=== PATIENT | male | born 1945 | race Hispanic/Latino ===

== ENCOUNTER 2016-12-02 17:22 | Emergency (ER) | payer MEDICARE ==
[2016-12-02 17:22] VITALS: BMI 30.4
--- NOTE | 2016-12-02 18:36 | ED PDOC ---
HPI: Head Injury Time Seen by Provider: 12/02/16 17:45 Chief Complaint (Nursing): Headache Chief Complaint (Provider): Head Injury History Per: Patient History/Exam Limitations: no limitations Injury Occurred (Timing): Days Ago: (x2) Onset/Duration Of Symptoms: Intermittent Episodes Patient States: Fell Striking Head Description Of Injury (Context): Fell in the middle of the night, hit top of head and nose on furniture Loss Of Consciousness: No Additional Complaint(s): 70 year old male presents to ED with complaints of head injury sustained x2 days ago and has a past medical history of HTN and hypercholesterolemia. States that he hit the top of his head and nose on furniture after tripping. Notes intermittent dizziness when walking since injury. (+) mild left sided headache, (-) LOC, syncopy, chest pain, or vomiting. Patient reports history of subdural hematoma x2 and a craniotomy. Notes that he was admitted her earlier this year for subdural hematoma ([facility] - surg). PCP: Dr. Jeffrey Past Medical History Reviewed: Historical Data, Nursing Documentation, Vital Signs Vital Signs: Last Vital Signs Temp 97.2 F L 12/02/16 17:28 Pulse 66 12/02/16 17:28 Resp 16 12/02/16 17:28 BP 133/71 12/02/16 17:28 Pulse Ox 100 12/02/16 17:28 - Medical History PMH: Anxiety (50 years ago), Arthritis, Depression (50 years ago), HTN, Hypercholesterolemia, Kidney Stones, Chronic Kidney Disease Denies: No Chronic Diseases, Asthma, Atrial Fibrillation, Bronchitis, Cardia Arrhythmia, CHF, COPD, Emphysema, HIV, Mitral Valve Prolapse, Parkinson's Disease, Peripheral Edema, Seizures, TIA - Surgical History Surgical History: Denies: No Surg Hx, Pacemaker Other surgeries: Craniotomy - Family History Family History: States: Unknown Family Hx - Social History Drugs: Denies - Home Medications Home Medications: Ambulatory Orders Medication Instructions Recorded Acetaminophen [Tylenol 325mg tab] 650 mg PO Q6 PRN #0 tab 06/11/16 Betamethasone Dip 0.05% [Diprolene] 1 applic TOP BID #0 tube 06/11/16 Enalapril Maleate [Vasotec] 10 mg PO DAILY #0 tab 06/11/16 Gabapentin [Neurontin] 300 mg PO BID #0 cap 06/11/16 Insulin Detemir [Levemir] 30 units SC HS #0 vial 06/11/16 MetFORMIN [glucoPHAGE] 1,000 mg PO BIDWM #0 tab 06/11/16 Metoprolol Tartrate [Lopressor] 50 mg PO Q12 #0 tab 06/11/16 Pantoprazole [Protonix EC Tab] 40 mg PO DAILY #0 ect 06/11/16 Pioglitazone [Actos] 30 mg PO DAILY #0 tab 06/11/16 SITagliptin [Januvia] 100 mg PO DAILY #0 tab 06/11/16 Sucralfate [Carafate Oral Susp] 1 gm PO TID #0 udc 06/11/16 Thiamine [Vitamin B1 Tab] 100 mg PO TID #0 tab 06/11/16 Venlafaxine [Effexor XR] 150 mg PO DAILY #0 cer 06/11/16 Zolpidem [Ambien] 5 mg PO HS PRN #0 tab 06/11/16 amLODIPine [Norvasc] 10 mg PO DAILY #0 tab 06/11/16 levETIRAcetam [Keppra] 1,000 mg PO BID #0 tab 06/11/16 - Allergies Allergies/Adverse Reactions: Allergies Allergy/AdvReac Type Severity Reaction Status Date / Time iodine Allergy RASH Verified 12/02/16 17:28 Review of Systems ROS Statement: Except As Marked, All Systems Reviewed And Found Negative Cardiovascular: Negative for: Chest Pain Gastrointestinal: Negative for: Vomiting Neurological: Positive for: Headache, Dizziness. Negative for: Other (LOC, syncopy) Physical Exam - Reviewed Nursing Documentation Reviewed: Yes Vital Signs Reviewed: Yes - Physical Exam Appears: Positive for: No Acute Distress. Negative for: Uncomfortable Head Exam: Positive for: ATRAUMATIC Skin: Positive for: Normal Color, Warm, Dry Eye Exam: Positive for: Normal appearance, EOMI, PERRL ENT: Positive for: Other (Small abrasion on left bridge of nose) Neck: Positive for: Normal, Supple Cardiovascular/Chest: Positive for: Regular Rate, Rhythm. Negative for: Murmur Respiratory: Positive for: Normal Breath Sounds. Negative for: Respiratory Distress Gastrointestinal/Abdominal: Positive for: Normal Exam Extremity: Positive for: Normal ROM. 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 Negative for: Motor/ Sensory Deficits, Aphasia, Facial Droop - Laboratory Results Result Diagrams: 12/02/16 18:33 12/02/16 18:33 - ECG ECG: Positive for: Interpreted By Me, Viewed By Me ECG Rhythm: Positive for: Normal QRS, Normal ST Segment, Sinus Rhythm. Negative for: ST/T Changes Rate: 66 O2 Sat by Pulse Oximetry: 100 (RA) Pulse Ox Interpretation: Normal Medical Decision Making Medical Decision Makin Initial impression: head injury DDx: subdural hematoma, other intracranial bleeding, concussion Initial plan: * CT HEAD * EKG * Labs * PTT/PT Scribe Attestation: Documented by Bárbara Telles acting as a scribe for Godwin Busch MD. Scribe Attestation: All medical record entries made by the Scribe were at my direction and personally dictated by me. I have reviewed the chart and agree that the record accurately reflects my personal performance of the history, physical exam, medical decision making, and the department course for this patient. I have also personally directed, reviewed, and agree with the discharge instructions and disposition. Disposition - Clinical Impression Clinical Impression: Headache, Head injury - Patient ED Disposition Is Patient to be Admitted: No Doctor Will See Patient In The: Office Counseled Patient/Family Regarding: Studies Performed, Diagnosis, Need For Followup - Disposition Referrals: Estuardo Jeffrey MD [Staff Provider] - Disposition: Routine/Home Disposition Time: 19:18 Condition: GOOD Additional Instructions: Follow up with your PCP in 2-3 days. Instructions: Head Injury (ED)
[2016-12-02 18:38] LABS: BASO % 0.4 % (0.0-2.0); EOS # 0.1 K/uL (0.0-0.7); EOS % 1.6 % (0.0-4.0); HEMATOCRIT 39.6 % (35.0-51.0); LYMPH # 2.2 K/uL (1.0-4.3); LYMPH % 38.3 % (20.0-40.0); MEAN CELL VOLUME 91.5 fl (80.0-94.0); MEAN CORPUSCULAR HEMOGLOBIN 30.6 pg (27.0-31.0); MEAN CORPUSCULAR HGB CONC 33.4 g/dL (33.0-37.0); MEAN PLATELET VOLUME 7.5 fl (7.2-11.7); MONO # 0.5 K/uL (0.0-0.8); MONO % 8.6 % (0.0-10.0); NEUT # 2.9 K/uL (1.8-7.0); NEUT % 51.1 % (50.0-75.0); NRBC % 0.1 % (0.0-0.0); RED CELL DISTRIBUTION WIDTH 13.4 % (11.5-14.5); WHITE BLOOD COUNT 5.7 K/uL (4.8-10.8)
[2016-12-02 18:49] LABS: BLOOD UREA NITROGEN 33 mg/dl (9-20); CALCIUM 9.8 mg/dL (8.4-10.2); CARBON DIOXIDE 26 mmol/L (22-30); CHLORIDE 102 mmol/L (98-107); GFR AFRICAN-AMERICAN > 60; GLUCOSE,RANDOM 97 mg/dL (75-110); POTASSIUM 4.6 MMOL/L (3.6-5.0); SODIUM 140 mmol/l (132-148)
--- NOTE | 2016-12-02 18:59 | CT ---
PROCEDURE: CT HEAD WITHOUT CONTRAST. HISTORY: head injury headache hx of SDH/cranio COMPARISON: 07/29/2016. Summary of findings on the comparison examination: Interval resolving previously identified chronic left subdural hematoma. TECHNIQUE: Axial computed tomography images were obtained through the head/brain without intravenous contrast. Radiation dose: Total exam DLP = 920.17 mGy-cm. This CT exam was performed using one or more of the following dose reduction techniques: Automated exposure control, adjustment of the mA and/or kV according to patient size, and/or use of iterative reconstruction technique. FINDINGS: HEMORRHAGE: No intracranial hemorrhage. Very thin rim of extra-axial fluid at the surgical bed improved compared to the previous study. Maximum thickness 4 mm. Underlying cortical sulci are unremarkable without evidence of edema or mass effect. BRAIN: No mass effect or edema. Cortical atrophy, periventricular small vessel disease VENTRICLES: Unremarkable. No hydrocephalus. CALVARIUM: Satisfactory appearance postoperative changes related to left craniotomy. PARANASAL SINUSES: Unremarkable as visualized. No significant inflammatory changes. MASTOID AIR CELLS: Unremarkable as visualized. No inflammatory changes. OTHER FINDINGS: None. IMPRESSION: No acute findings related to/accounting for the clinical presentation. Improving postoperative findings with trace residual extra-axial fluid at the surgical site.
[2016-12-02 19:04] LABS: PARTIAL THROMBOPLASTIN TIME 29.2 SECONDS (23.3-32.5)
[2016-12-02 19:39] VITALS: BP 136/76; PULSE 68; RESP 17; TEMP 97.9; O2SAT 98
--- NOTE | 2016-12-03 12:37 | CARD ---
APPROVED REPORT EKG Measurement Heart [id number] <Conclusion> Normal sinus rhythm Normal ECG
== END 2016-12-02 19:35 | disposition home or self-care (01) ==
LOC: H.ER 17:22
DX: S09.90XA Unspecified injury of head, initial encounter (principal); W19.XXXA Unspecified fall, initial encounter; Y92.008 Other place in unspecified non-institutional (private) residence as the place of occurrence of the external cause; F41.9 Anxiety disorder, unspecified; I12.9 Hypertensive chronic kidney disease with stage 1 through stage 4 chronic kidney disease, or unspecified chronic kidney disease; E78.00 Pure hypercholesterolemia, unspecified; Z79.4 Long term (current) use of insulin; E11.9 Type 2 diabetes mellitus without complications

== ENCOUNTER 2017-04-11 15:22 | Inpatient (IN) | payer MEDICARE ==
[2017-04-11 15:22] VITALS: BMI 30.4
--- NOTE | 2017-04-11 17:13 | ED PDOC ---
HPI: Psych/Substance Abuse Time Seen by Provider: 04/11/17 17:11 Chief Complaint (Nursing): Psychiatric Evaluation Chief Complaint (Provider): PSYCH EVAL History Per: Patient (71 Y/O MALE H/O SUBDURAL HEMORRHAGE/HTN HERE WITH ANXIETY. PATIENT CONCERNED ABOUT RECENT FALLS AND WORRIED ABOUT H/O SUBDURAL HEMORRHAGE. PATIENT HAS SEEN PMD [facility] AND STATES HE IS WORRIED HE MAY HURT SELF. SENT TO ED FOR EVALUATION.) Past Medical History Reviewed: Historical Data, Nursing Documentation, Vital Signs Vital Signs: Last Vital Signs Temp 98.2 F 04/11/17 15:53 Pulse 66 04/11/17 15:53 Resp 16 04/11/17 15:53 BP 137/54 L 04/11/17 15:53 Pulse Ox 100 04/11/17 15:53 - Medical History PMH: Anxiety (50 years ago), Arthritis, Depression (50 years ago), HTN, Hypercholesterolemia, Kidney Stones, Chronic Kidney Disease Denies: Asthma, Atrial Fibrillation, Bronchitis, Cardia Arrhythmia, CHF, COPD , Emphysema, HIV, Mitral Valve Prolapse, Parkinson's Disease, Peripheral Edema, Seizures, TIA - Surgical History Surgical History: Denies: Pacemaker - Family History Family History: States: Unknown Family Hx - Home Medications Home Medications: Ambulatory Orders Medication Instructions Recorded Pantoprazole [Protonix EC Tab] 40 mg PO DAILY #0 ect 06/11/16 Pioglitazone [Actos] 30 mg PO DAILY #0 tab 06/11/16 SITagliptin [Januvia] 100 mg PO DAILY #0 tab 06/11/16 Sucralfate [Carafate Oral Susp] 1 gm PO TID #0 udc 06/11/16 Aspirin [Aspirin Chewable] 81 mg PO DAILY 04/11/17 Atorvastatin [Lipitor] 20 mg PO HS 04/11/17 Gabapentin [Neurontin] 300 mg PO HS 04/11/17 Glimepiride [Amaryl] 1 mg PO BID 04/11/17 Losartan [Cozaar] 25 mg PO DAILY 04/11/17 MetFORMIN [glucoPHAGE] 1,000 mg PO BID 04/11/17 Saxagliptin HCl [Onglyza] 10 mg PO DAILY 04/11/17 Metoprolol Tartrate [Lopressor] 12.5 mg PO Q12 #60 tab 04/14/17 Venlafaxine HCl [Venlafaxine HCl 225 mg PO DAILY #30 tab.er.24 04/14/17 ER] Zolpidem [Ambien] 5 mg PO HS PRN #30 tab 04/14/17 - Allergies Allergies/Adverse Reactions: Allergies Allergy/AdvReac Type Severity Reaction Status Date / Time iodine Allergy RASH Verified 04/11/17 15:53 Review of Systems ROS Statement: Except As Marked, All Systems Reviewed And Found Negative Physical Exam - Reviewed Nursing Documentation Reviewed: Yes Vital Signs Reviewed: Yes - Physical Exam Appears: Positive for: Well, Non-toxic, No Acute Distress Head Exam: Positive for: ATRAUMATIC, NORMAL INSPECTION, NORMOCEPHALIC Skin: Positive for: Normal Color, Warm, DRY Eye Exam: Positive for: EOMI, Normal appearance, PERRL ENT: Positive for: Normal ENT Inspection Neck: Positive for: Normal, Painless ROM Cardiovascular/Chest: Positive for: Regular Rate, Rhythm Respiratory: Positive for: CNT, Normal Breath Sounds Gastrointestinal/Abdominal: Positive for: Normal Exam, Bowel Sounds, Soft Back: Positive for: Normal Inspection Extremity: Positive for: Normal ROM Neurologic/Psych: Positive for: Alert, Oriented - Laboratory Results Result Diagrams: 04/11/17 17:50 04/11/17 17:50 - ECG ECG Rhythm: Positive for: Sinus Bradycardia (59 bpm no ectopy no acute changes) O2 Sat by Pulse Oximetry: 100 - Progress ED Course And Treament: HEAD CT: NO ACUTE DISEASE Disposition - Clinical Impression Clinical Impression: Depression - Patient ED Disposition Is Patient to be Admitted: Transfer of Care - Disposition Disposition: Transfer of Care Disposition Time: 20:00 Condition: STABLE Patient Signed Over To: Deepa Franz Handoff Comments: CRISIS EVAL
[2017-04-11 18:15] LABS: BASO % 0.2 % (0.0-2.0); EOS # 0.1 K/uL (0.0-0.7); EOS % 0.9 % (0.0-4.0); HEMATOCRIT 39.9 % (35.0-51.0); LYMPH # 1.8 K/uL (1.0-4.3); LYMPH % 28.5 % (20.0-40.0); MEAN CORPUSCULAR HEMOGLOBIN 31.1 pg (27.0-31.0); MEAN CORPUSCULAR HGB CONC 34.2 g/dL (33.0-37.0); MEAN PLATELET VOLUME 7.5 fl (7.2-11.7); MONO # 0.4 K/uL (0.0-0.8); MONO % 6.5 % (0.0-10.0); NEUT # 3.9 K/uL (1.8-7.0); NEUT % 63.9 % (50.0-75.0); NRBC % 0.1 % (0.0-0.0); RED CELL DISTRIBUTION WIDTH 13.2 % (11.5-14.5); WHITE BLOOD COUNT 6.2 K/uL (4.8-10.8)
[2017-04-11 18:22] LABS: ALB/GLOB RATIO 1.5 (1.0-2.1); ALCOHOL SERUM < 10 mg/dl (0-10); ALKALINE PHOSPHATASE 77 U/L (38-126); ALT/SGPT 36 U/L (21-72); AST/SGOT 26 U/L (17-59); BILIRUBIN,TOTAL 0.5 mg/dl (0.2-1.3); BLOOD UREA NITROGEN 21 mg/dl (9-20); CALCIUM 10.1 mg/dL (8.4-10.2); CARBON DIOXIDE 23 mmol/L (22-30); CHLORIDE 102 mmol/L (98-107); GFR AFRICAN-AMERICAN > 60; GLUCOSE,RANDOM 96 mg/dL (75-110); POTASSIUM 4.5 MMOL/L (3.6-5.0); SODIUM 138 mmol/l (132-148); TOTAL PROTEIN 7.2 G/DL (6.3-8.2)
[2017-04-11 18:52] LABS: THYROID STIMULATING HORMONE 1.62 mIU/ML (0.46-4.68)
--- NOTE | 2017-04-11 20:00 | CT ---
EXAM: CT Head Without Intravenous Contrast EXAM DATE/TIME: 04/11/2017 5:11 PM CLINICAL HISTORY: 71 years old, male; Condition or disease; Other: H/o subdural; Prior surgery; Surgery date: 6+ months; Additional info: H/o subdural/ notes falls TECHNIQUE: Axial computed tomography images of the head/brain without intravenous contrast. All CT scans at this facility use one or more dose reduction techniques, viz.: automated exposure control; ma/kV adjustment per patient size (including targeted exams where dose is matched to indication; i.e. head); or iterative reconstruction technique. Coronal and sagittal reformatted images were created and reviewed. COMPARISON: CT - HEAD W/O CONTRAST 12/02/2016 6:39:43 PM FINDINGS: Brain: There is prominence of sulci gyri and ventricles. There is no midline shift. There is patchy asymmetric decreased attenuation in periventricular white matter. There are no focal masses. There are no focal hemorrhages. There is a chronic left subdural collection. Apple-white differentiation is visualized. Ventricles: See above Bones: There is an old left frontoparietal craniotomy defect. Soft tissues: unremarkable Sinuses: There is no acute sinusitis. Ears and mastoids: Middle ears and mastoids are unremarkable. Orbits: Orbital contents are unremarkable. IMPRESSION: Atrophy and small vessel disease, no acute bleed; remote left frontoparietal craniotomy with stable subdural collection, similar finding seen on the prior study
[2017-04-11 20:45] LABS: RBC URINE 1 /hpf (0-3); URINE BACTERIA RARE (<OCC); URINE BILIRUBIN NEGATIVE (NEGATIVE); URINE BLOOD NEGATIVE (NEGATIVE); URINE COLOR YELLOW (YELLOW); URINE GLUCOSE (UA) >=500 mg/dL (Normal); URINE KETONE NEGATIVE (NEGATIVE); URINE LEUKOCYTE ESTERASE NEG Leu/uL (Negative); URINE PROTEIN NEGATIVE (NEGATIVE); URINE UROBILINOGEN 0.2-1.0 mg/dL (0.2-1.0); WBC URINE < 1 /hpf (0-5)
--- NOTE | 2017-04-11 21:11 | ED PDOC ---
- Laboratory Results Result Diagrams: 04/11/17 17:50 04/11/17 17:50 - ECG O2 Sat by Pulse Oximetry: 100 - Radiology X-Ray: Viewed By Me X-Ray Interpretation: No Acute Disease - Progress ED Course And Treament: case endorsed to report writer from Adrian LEÓN pending crisis eval Patient evaluated by central supply worker; to be admitted as per Dr. Ann Medical Decision Making Medical Decision Making: Patient medically stable for psych admission. Disposition - Clinical Impression Clinical Impression: Depression - POA Present On Arrival: None - Disposition Disposition: Admitted as In-Patient Disposition Time: 21:11 Condition: STABLE
[2017-04-11] MEDS ORDERED: Alum-Mag Hydrox-Simethicone Susp (30 mL) PO PRN (22:39)
[2017-04-11] MEDS ORDERED: Magnesium Hydroxide Susp 30 ml UD PO PRN (22:39)
[2017-04-11] MEDS ORDERED: Bismuth Subsalicylate 262 mg/15 ml Sus (240 ml) PO PRN (22:39)
--- NOTE | 2017-04-11 23:46 | PCM.BM ---
Treatment Plan Problems - Problems identified on initial assessmt Social Isolation Date Initiated: 04/11/17 Time Initiated: 23:45 Assessment reference: NA Status: Active Activity Intolerance Date Initiated: 04/11/17 Time Initiated: 23:45 Assessment reference: NA Status: Active Treatment assets and liabiliti Patient Assests: adapts well, cooperative, ADL independent, good support system , cognitively intact, good interpersonal skills Patient Liabilities: live alone, financial problems - Milieu Protocol Maintain good personal hygiene: daily Encourage regular showers, daily Remind patient to perform daily oral care, daily Assist patient to perform ADL's Maintain personal safety: every shift Educate patient to report safety concerns to staff, every shift Monitor environment for contraband/sharps Medication safety: Monitor for expected outcome, potential side effects: every shift, Assess barriers to learning: every shift, Assess readiness for medication education: every shift
[2017-04-12 07:10] LABS: T4 9.07 ug/dl (5.5-11.0)
[2017-04-12 07:23] LABS: THYROID STIMULATING HORMONE 3.49 mIU/ML (0.46-4.68)
--- NOTE | 2017-04-12 07:30 | CARD ---
APPROVED REPORT EKG Measurement Heart [id number] [id number] <Conclusion> Sinus bradycardia Inferior infarct, age undetermined Abnormal ECG
--- NOTE | 2017-04-12 08:05 | CP.PCM.CON ---
History of Present Illness - History of Present Illness History of Present Illness: HPI: 71 y/o male with a PMHx remarkable for anxiety, HTN, NIDDM2, and subdural hematoma (requiring surgical interventionx2) presented to the [facility] ED for evaluation of worsening anxiety and insomina associated with feelings of self harm. Reports he has been complaint with his medications but feels like the Effexor has not been controlling his symptoms well enough. No other complaints. Currently denies any fever/chills, headaches, changes in vision, auditory/ visual disturbances/hallucinations, homicidal/suicidal ideation, CP/SOB/ Palpitations, N/V/D/C, Urinary symptoms, numbness/tingling. ROS: 12 points reviewed, negative otherwise as noted per HPI PMD: Dr. Jeffrey PMHx: HTN, NIDDM2, Sudural hematoma s/p fall Meds: as per med rec ALL: iodine (rash) Vaccines: up to date as per pt PSurghx: subdural hematoma surgery x2, laminectomy SocialHx: denies tobacco abuse, social ETOH consumption, Denies recreational/ illicit drug use. 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 FamilyHx: noncontributory PE: GEN: well, NAD, AAOx3 PSYCH: cooperative with exam, calm, alert HEENT: atraumatic, scars s/p subdural hematoma surgery, PERRLA, EMOI, conjuctiva clear, sclera nonicteric, throat clear Neck: no cervical adenopathy, carotid bruit, thyroid nontender. CVS: RRR, S1S2+, No MRG, Normal PMI LUNGS: CTA, B/L, No WRR ABD: Soft, NT/ND, No G/R, bowl sounds + Pulses: 2+ throughout Neuro: CN II-XII grossly intact Assessment: 71 y/o male with PMHx of anxiety, HTN, NIDDM2 admitted zo-psych for evaluation of anxiety exacerbation. Plan: 1) Anxiety Exacerbation -as per psych team 2) HTN (well controlled) -Decreased Lopressor to 25mg Q12, will monitor vitals -c/w with Losartan, with adjust based on vitals -Atorvastatin 40mg 3) NIDDM2 -f/u HBA1C -monitor BS -Januvia 100mg QD -Metformin 1000mg BID -Pioglitazone 30mg QD 4) Preventive -Lipid panel, TSH, T4 all wnl 5) Prophylaxis: -Aspirin 81mg QD -Pantoprazole 40mg QD -Ambulation Case d/w attending, will follow as needed Past Patient History - Tetanus Immunizations Tetanus Immunization: Unknown - Past Medical History & Family History Past Medical History?: Yes - Past Social History Smoking Status: Never Smoked - CARDIAC Hx Cardiac Disorders: Yes Hx Hypercholesterolemia: Yes Hx Hypertension: Yes - PULMONARY Hx Respiratory Disorders: Yes - NEUROLOGICAL HX Cerebrovascular Accident: No Hx Seizures: No - HEENT Hx HEENT Problems: Yes Other/Comment: Near sighted, contact lenses, reading glasses - RENAL Hx Chronic Kidney Disease: Yes Hx Kidney Stones: Yes - ENDOCRINE/METABOLIC Hx Endocrine Disorders: Yes Hx Diabetes Mellitus Type 1: Yes - HEMATOLOGICAL/ONCOLOGICAL Hx Cancer: No Hx Human Immunodeficiency Virus (HIV): No - INTEGUMENTARY Hx Dermatological Problems: Yes Hx Psoriasis: Yes (Head & back & Buttocks) Other/Comment: Taking diprolene lotion/ointment - MUSCULOSKELETAL/RHEUMATOLOGICAL Hx Falls: No - GASTROINTESTINAL Hx Gastritis: Yes Other/Comment: Gastroparesis - GENITOURINARY/GYNECOLOGICAL Hx Sexually Transmitted Disorders: No - PSYCHIATRIC Hx Anxiety: Yes Hx Depression: Yes Hx Substance Use: No - SURGICAL HISTORY Other/Comment: -Pilonidal Cystectomy 1965. -Lithotripsy. -2 laminectomy ( July 2014) Back surgery by Dr. Castro. -Craniotomy & Evacuation of Clots - 06/09 - ANESTHESIA Hx Anesthesia: Yes Hx Anesthesia Reactions: No Hx Malignant Hyperthermia: No Meds Allergies/Adverse Reactions: Allergies Allergy/AdvReac Type Severity Reaction Status Date / Time iodine Allergy RASH Verified 04/11/17 15:53 - Medications Medications: Current Medications Acetaminophen (Tylenol 325mg Tab) 650 mg PO Q4 PRN PRN Reason: Pain, moderate (4-7) Al Hydrox/Mg Hydrox/Simethicone (Maalox Plus 30 Ml) 30 ml PO Q4 PRN PRN Reason: Dyspepsia Aspirin (Aspirin Chewable) 81 mg PO DAILY [facility] Atorvastatin Calcium (Lipitor) 20 mg PO HS [facility] Bismuth Subsalicylate (Pepto-Bismol) 524 mg PO Q4 PRN PRN Reason: Diarrhea Gabapentin (Neurontin) 300 mg PO HS [facility] Home Med (Glimepiride [Amaryl]) 1 mg PO BID [facility] Home Med (Saxagliptin Hcl [Onglyza]) 10 mg PO DAILY [facility] Lorazepam (Ativan) 0.5 mg PO HS PRN PRN Reason: Insomnia Stop: 04/25/17 22:40 Last Admin: 04/11/17 23:14 Dose: 0.5 mg Losartan Potassium (Cozaar) 25 mg PO DAILY [facility] Magnesium Hydroxide (Milk Of Magnesia) 30 ml PO HS PRN PRN Reason: Constipation Metformin HCl (Glucophage) 1,000 mg PO BID [facility] Metoprolol Tartrate (Lopressor) 50 mg PO Q12 [facility] Pantoprazole Sodium (Protonix Ec Tab) 40 mg PO DAILY [facility] Pioglitazone HCl (Actos) 30 mg PO DAILY [facility] Sitagliptin Phosphate (Januvia) 100 mg PO DAILY [facility] Sucralfate (Carafate Oral Susp) 1 gm PO TID [facility] Venlafaxine HCl (Effexor Xr) 150 mg PO DAILY [facility] Results - Vital Signs Recent Vital Signs: Last Vital Signs Temp 97.3 F L 04/12/17 06:00 Pulse 68 04/12/17 06:00 Resp 19 04/12/17 06:00 BP 125/64 04/12/17 06:00 Pulse Ox 98 04/11/17 22:25 - Labs Result Diagrams: 04/11/17 17:50 04/11/17 17:50 Labs: Laboratory Results - last 24 hr 04/11/17 04/11/17 04/11/17 17:50 17:50 20:36 WBC 6.2 RBC 4.39 L Hgb 13.6 Hct 39.9 MCV 91.0 MCH 31.1 H MCHC 34.2 RDW 13.2 Plt Count 186 MPV 7.5 Neut % (Auto) 63.9 Lymph % (Auto) 28.5 Pender % (Auto) 6.5 Eos % (Auto) 0.9 Baso % (Auto) 0.2 Neut # 3.9 Lymph # 1.8 Pender # 0.4 Eos # 0.1 Baso # 0.0 Sodium 138 Potassium 4.5 Chloride 102 Carbon Dioxide 23 Anion Gap 17 BUN 21 H Creatinine 1.1 Est GFR ( Amer) > 60 Est GFR (Non-Af Amer) > 60 POC Glucose (mg/dL) Random Glucose 96 Calcium 10.1 Ferritin Total Bilirubin 0.5 AST 26 ALT 36 Alkaline Phosphatase 77 Total Protein 7.2 Albumin 4.4 Globulin 2.8 Albumin/Globulin Ratio 1.5 Triglycerides Cholesterol LDL Cholesterol Direct HDL Cholesterol Vitamin B12 Free T4 Thyroxine (T4) TSH 3rd Generation 1.62 Urine Color Urine Clarity Urine pH Ur Specific Chaplin Urine Protein Urine Glucose (UA) Urine Ketones Urine Blood Urine Nitrate Urine Bilirubin Urine Urobilinogen Ur Leukocyte Esterase Urine RBC (Auto) Urine Microscopic WBC Ur Squamous Epith Cells Urine Bacteria Urine Opiates Screen Negative Urine Methadone Screen Negative Ur Barbiturates Screen Negative Ur Phencyclidine Scrn Negative Ur Amphetamines Screen Negative U Benzodiazepines Scrn Positive H U Oth Cocaine Metabols Negative U Cannabinoids Screen Negative Alcohol, Quantitative < 10 04/11/17 04/12/17 04/12/17 20:36 06:31 06:31 WBC RBC Hgb Hct MCV MCH MCHC RDW Plt Count MPV Neut % (Auto) Lymph % (Auto) Pender % (Auto) Eos % (Auto) Baso % (Auto) Neut # Lymph # Pender # Eos # Baso # Sodium Potassium Chloride Carbon Dioxide Anion Gap BUN Creatinine Est GFR ( Amer) Est GFR (Non-Af Amer) POC Glucose (mg/dL) Random Glucose Calcium Ferritin 41.8 Total Bilirubin AST ALT Alkaline Phosphatase Total Protein Albumin Globulin Albumin/Globulin Ratio Triglycerides 128 Cholesterol 117 LDL Cholesterol Direct 56 HDL Cholesterol 35 Vitamin B12 298 Free T4 1.31 Thyroxine (T4) 9.07 TSH 3rd Generation 3.49 Urine Color Yellow Urine Clarity Slighty-cloudy Urine pH 5.0 Ur Specific Chaplin 1.030 Urine Protein Negative Urine Glucose (UA) >=500 Urine Ketones Negative Urine Blood Negative Urine Nitrate Negative Urine Bilirubin Negative Urine Urobilinogen 0.2-1.0 Ur Leukocyte Esterase Neg Urine RBC (Auto) 1 Urine Microscopic WBC < 1 Ur Squamous Epith Cells < 1 Urine Bacteria Rare Urine Opiates Screen Urine Methadone Screen Ur Barbiturates Screen Ur Phencyclidine Scrn Ur Amphetamines Screen U Benzodiazepines Scrn U Oth Cocaine Metabols U Cannabinoids Screen Alcohol, Quantitative 04/12/17 06:56 WBC RBC Hgb Hct MCV MCH MCHC RDW Plt Count MPV Neut % (Auto) Lymph % (Auto) Pender % (Auto) Eos % (Auto) Baso % (Auto) Neut # Lymph # Pender # Eos # Baso # Sodium Potassium Chloride Carbon Dioxide Anion Gap BUN Creatinine Est GFR ( Amer) Est GFR (Non-Af Amer) POC Glucose (mg/dL) 84 Random Glucose Calcium Ferritin Total Bilirubin AST ALT Alkaline Phosphatase Total Protein Albumin Globulin Albumin/Globulin Ratio Triglycerides Cholesterol LDL Cholesterol Direct HDL Cholesterol Vitamin B12 Free T4 Thyroxine (T4) TSH 3rd Generation Urine Color Urine Clarity Urine pH Ur Specific Chaplin Urine Protein Urine Glucose (UA) Urine Ketones Urine Blood Urine Nitrate Urine Bilirubin Urine Urobilinogen Ur Leukocyte Esterase Urine RBC (Auto) Urine Microscopic WBC Ur Squamous Epith Cells Urine Bacteria Urine Opiates Screen Urine Methadone Screen Ur Barbiturates Screen Ur Phencyclidine Scrn Ur Amphetamines Screen U Benzodiazepines Scrn U Oth Cocaine Metabols U Cannabinoids Screen Alcohol, Quantitative
[2017-04-12] MEDS ORDERED: SAXAGLIPTIN HCL PO SCH (09:00)
[2017-04-12] MEDS: Venlafaxine 150 mg ER Cap PO SCH (09:20)
[2017-04-12] MEDS: Sucralfate 1 gm/10 ml Oral Susp UD PO SCH ×3 (09:22→16:39)
[2017-04-12] MEDS: Pantoprazole 40 mg EC Tab PO SCH (09:23)
--- NOTE | 2017-04-12 11:09 | PCM.PSYCH ---
Initial Psychiatric Evaluation - Initial Psychiatric Evaluation Type of Admission: Voluntary Legal Status: Capacity Chief Complaint (in patient's own words): "I was feeling depressed and had thoughts of hurting myself." Patient's Reaction to Hospitalization: HPI: 71 y/o male who brought himself into ED secondary to his PCP-Dr. Jeffrey encouraging him to get a psych eval due to him expressing SI a few days ago. Patient reports that he has thoughts of hurting himself w/o plan or intent. He currently denies any suicidal ideation/plan/attempt. Patient reports that he has chronic depression/anxiety and states that his depression has been worse recently. +sleep/appetite disturbances. +hopelessness at times. Denied AH/VH/paranoia/delusions/fanny/obsessions. We discussed increasing his Effexor, but he was not agreeable at this time. Dismantler discussed that benzo use can increase risk of falls in the elderly. 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 Takes Effexor ER 187.5 mg PO Daily, Ambien 10mg PO HS, and Xanax PRN prescribed by PMD; Pt stated he attempted suicide by taking pills and alcohol when he was 17 y/o. 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 Lives alone. Never , no kids. Drinks socially, denies drug use. Current Medications: Active Medications Generic Name Dose Route Start Last Admin Trade Name Freq PRN Reason Stop Dose Admin Acetaminophen 650 mg 04/11/17 22:39 Tylenol 325mg Tab PO Q4 PRN Pain, moderate (4-7) Al Hydrox/Mg Hydrox/Simethicone 30 ml 04/11/17 22:39 Maalox Plus 30 Ml PO Q4 PRN Dyspepsia Aspirin 81 mg 04/12/17 09:00 04/12/17 09:20 Aspirin Chewable PO 81 mg DAILY PAMELA Administration Atorvastatin Calcium 20 mg 04/12/17 22:00 Lipitor PO HS [facility] Bismuth Subsalicylate 524 mg 04/11/17 22:39 Pepto-Bismol PO Q4 PRN Diarrhea Gabapentin 300 mg 04/12/17 22:00 Neurontin PO HS [facility] Home Med 1 mg 04/12/17 09:00 Glimepiride [Amaryl] PO BID [facility] Home Med 10 mg 04/12/17 09:00 Saxagliptin Hcl [Onglyza] PO DAILY [facility] Lorazepam 0.5 mg 04/12/17 10:06 Ativan PO Q8 PRN Anxiety Losartan Potassium 25 mg 04/12/17 09:00 04/12/17 09:22 Cozaar PO 25 mg DAILY PAMELA Administration Magnesium Hydroxide 30 ml 04/11/17 22:39 Milk Of Magnesia PO HS PRN Constipation Metformin HCl 1,000 mg 04/12/17 09:00 04/12/17 09:21 Glucophage PO 1,000 mg BID PAMELA Administration Metoprolol Tartrate 25 mg 04/12/17 21:00 Lopressor PO Q12 PAMELA Pantoprazole Sodium 40 mg 04/12/17 09:00 04/12/17 09:23 Protonix Ec Tab PO 40 mg DAILY PAMELA Administration Pioglitazone HCl 30 mg 04/12/17 09:00 04/12/17 09:20 Actos PO 30 mg DAILY PAMELA Administration Sitagliptin Phosphate 100 mg 04/12/17 09:00 04/12/17 09:21 Januvia PO 100 mg DAILY PAMELA Administration Sucralfate 1 gm 04/12/17 09:00 04/12/17 09:22 Carafate Oral Susp PO 1 gm TID PAMELA Administration Venlafaxine HCl 150 mg 04/12/17 09:00 04/12/17 09:20 Effexor Xr PO 150 mg DAILY PAMELA Administration Venlafaxine HCl 37.5 mg 04/13/17 10:08 Effexor PO DAILY [facility] Zolpidem Tartrate 5 mg 04/12/17 09:59 Ambien PO HS PRN Insomnia Past Psychiatric History - Past Psychiatric History Previous Treatment History: None Pertinent Medical Hx (Current Medical&Sleep Prob, Allergies): Allergies Allergy/AdvReac Type Severity Reaction Status Date / Time iodine Allergy RASH Verified 04/11/17 15:53 Metoprolol Tartrate [Lopressor] 50 mg PO Q12 #0 tab 06/11/16 Pantoprazole [Protonix EC Tab] 40 mg PO DAILY #0 ect 06/11/16 Pioglitazone [Actos] 30 mg PO DAILY #0 tab 06/11/16 SITagliptin [Januvia] 100 mg PO DAILY #0 tab 06/11/16 Sucralfate [Carafate Oral Susp] 1 gm PO TID #0 udc 06/11/16 Venlafaxine [Effexor XR] 150 mg PO DAILY #0 cer 06/11/16 Alprazolam [Xanax] 0.5 mg PO DAILY 04/11/17 Aspirin [Aspirin Chewable] 81 mg PO DAILY 04/11/17 Atorvastatin [Lipitor] 20 mg PO HS 04/11/17 Gabapentin [Neurontin] 300 mg PO HS 04/11/17 Glimepiride [Amaryl] 1 mg PO BID 04/11/17 Losartan [Cozaar] 25 mg PO DAILY 04/11/17 MetFORMIN [glucoPHAGE] 1,000 mg PO BID 04/11/17 Saxagliptin HCl [Onglyza] 10 mg PO DAILY 04/11/17 Zolpidem [Ambien] 10 mg PO HS 04/11/17 Review of Systems - Psychiatric Psychiatric: As Per HPI, Abnormal Sleep Pattern, Anhedonia, Anxiety, Depression , Hopelessness, Mood Swings, Suicidal Ideation Mental Status Examination - Personal Presentation Personal Presentation: Looks stated age - Affect Affect: Constricted - Motor Activity Motor Activity: Calm - Reliability in Providing Information Reliability in Providing Information: Good - Speech Speech: Organized - Mood Mood: Depressed - Formal Thought Process Formal Thought Process: No Impairment - Hallucinations/Delusions Additional comments: No AH/VH/paranoia/delusions - Obsessions/Compulsions Obsessions: No Compulsions: No - Cognitive Functions Orientation: Person, Place, Situation, Time Sensorium: Alert Attention/Concentration: Attentive Judgement: Intact, as evidence by: Good judgement, Intact, as evidence by: Insight regarding need for hospitalization Memory: Recent intact, as evidence by: Ability to recall events of the day, Remote intact, as evidenced by: Abilit to recall sig. life events, Remote intact , as evidenced by: Ability to recall historical events - Risk Risk: Suicidal - Strength & Assets Inventory Strength & Assets Inventory: Intelligence, Family support, Education, Employment history, Life experience, Cooperative - Limitations Limitations: Living alone DSM 5 DX - DSM 5 DSM 5 Diagnosis: Major Depressive Disorder, VICKEY - Recommended/Plan of Treatment Treatment Recommendations and Plan of Treatment: Major Depressive Disorder, Generalized Anxiety Disorder; patient requires inpatient psychiatric admission for treatment and safety -Admit to hospital -Hospitalist consult w/ Dr. Jeffrey -Individual and group therapy -Continue Effexor 187.5 mg PO Daily, patient does not want to increase dosage at this time -Stop Xanax -Disposition planning -No 1:1 indicated, patient can contract for safety Projected ELOS: 2-4 days Prognosis: Fair Discharge Plan and Discharge Criteria: Discharge when psychiatrically stable
--- NOTE | 2017-04-12 12:58 | RAD ---
HISTORY: clearance COMPARISON: 05/22/2016 FINDINGS: LUNGS: No active pulmonary disease. PLEURA: No significant pleural effusion identified, no pneumothorax apparent. CARDIOVASCULAR: No radiographic findings to suggest acute or significant cardiovascular disease. OSSEOUS STRUCTURES: No significant abnormalities. VISUALIZED UPPER ABDOMEN: Normal. OTHER FINDINGS: None. IMPRESSION: No active disease. No significant interval change compared to the prior examination(s).
[2017-04-12 13:07] LABS: FOLATE 19.7 ng/mL
[2017-04-12] MEDS: Venlafaxine 37.5 mg ER Cap PO SCH (16:40)
[2017-04-13] MEDS: Sucralfate 1 gm/10 ml Oral Susp UD PO SCH ×3 (08:22→16:25)
[2017-04-13] MEDS: Pantoprazole 40 mg EC Tab PO SCH (08:23)
[2017-04-13] MEDS: Venlafaxine 150 mg ER Cap PO SCH (08:28)
[2017-04-13] MEDS: Venlafaxine 37.5 mg ER Cap PO SCH (08:28)
[2017-04-13] MEDS ORDERED: Venlafaxine 37.5 mg ER Cap PO ONE (10:33)
--- NOTE | 2017-04-13 10:59 | PCM.PYCHPN ---
Psychiatric Progress Note - Psychiatric Progress Note Patient seen today, length of contact: Patient evaluated, case discussed with team, chart reviewed, 35 min Patient Chief Complaint: "I'm feeling better." Problems Identified/Issues Discussed: Patient reports that his mood is starting to improve. He is agreeable to increasing the Effexor at this time. r/b/se reviewed. Patient denies current ideation to harm self or others. Results of medical studies were reviewed with the patient. Medication Change: Yes (Increase Effexor XR to 225 mg PO Daily) Medical Record Reviewed: Yes Consults ordered or reviewed: Medicine consult appreciated Mental Status Examination - Cognitive Function Orientation: Person, Place, Situation, Time Memory: Intact Attention: WNL Concentration: WNL Association: WN Fund of Knowledge: WNL - Mood Mood: Depressed - Affect Affect: Constricted - Speech Speech: Appropriate - Formal Thought Process Formal Thought Process: No Impairment Psychotic Thoughts and Behaviors: No AH/VH/paranoia/delusions - Suicidal Ideation Suicidal Ideation: No - Homicidal Ideation Homicidal Ideation: No Goal/Treatment Plan - Goal/Treatment Plan Need for Continued Stay: Remain at risks for inpatient hospitalization, Severe depression anxiety Progress Toward Problem(s) and Goals/Treatment Plan: Major Depressive Disorder, Generalized Anxiety Disorder; patient requires inpatient psychiatric admission for treatment and safety -Hospitalist consult w/ Dr. Jeffrey -Individual and group therapy -Patient participated in treatment team today -Increase Effexor XR to 225 mg PO Daily -Stop Xanax -Disposition planning- possible discharge tomorrow if patient continues to improve clinically Estimated Date of D/C: 04/14/17 - Smoking Cessation Smoking Cessation Initiated: No Reason for not providing: Not indicated
[2017-04-13 15:43] VITALS: RESP 19
[2017-04-14 06:31] VITALS: BP 115/54; PULSE 63; TEMP 98.1
[2017-04-14] MEDS: Sucralfate 1 gm/10 ml Oral Susp UD PO SCH ×2 (08:55→13:22)
[2017-04-14] MEDS: Pantoprazole 40 mg EC Tab PO SCH (08:55)
[2017-04-14] MEDS ORDERED: Venlafaxine 75 mg ER Cap PO SCH (09:00)
[2017-04-14] MEDS ORDERED: Venlafaxine 150 mg ER Cap PO SCH (09:00)
--- NOTE | 2017-04-14 12:32 | PCM.PYCHDC ---
Mental Status Examination - Mental Status Examination Orientation: Person, Place, Situation, Time Memory: Intact Mood: Neutral Affect: Broad Speech: Appropriate Attention: WNL Concentration: WNL Association: WNL Fund of Knowledge: WNL Formal Thought Process: No Impairment Description of patient's judgement and insight: Fair I/J Psychotic Thoughts and Behaviors: No AH/VH/paranoia/delusions Suicidal Ideation: No Current Homicidal Ideation?: No Discharge Summary - Discharge Note Reason for Hospitalization: HPI: 71 y/o male who brought himself into ED secondary to his PCP-Dr. Jeffrey encouraging him to get a psych eval due to him expressing SI a few days ago. Patient reports that he has thoughts of hurting himself w/o plan or intent. He currently denies any suicidal ideation/plan/attempt. Patient reports that he has chronic depression/anxiety and states that his depression has been worse recently. +sleep/appetite disturbances. +hopelessness at times. Denied AH/VH/paranoia/delusions/fanny/obsessions. We discussed increasing his Effexor, but he was not agreeable at this time. File Machine Operator discussed that benzo use can increase risk of falls in the elderly. 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 Takes Effexor ER 187.5 mg PO Daily, Ambien 10mg PO HS, and Xanax PRN prescribed by PMD; Pt stated he attempted suicide by taking pills and alcohol when he was 17 y/o. 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 Never , no kids. Drinks socially, denies drug use. Laboratory Data: Abnormal Lab Results 04/14/17 06:26 POC Glucose (mg/dL) 93 Consultations:: List each consultation separately and include: 1. Reason for request. 2. Findings. 3. Follow-up Consultations: Medicine consult appreciated Summary of Hospital Course include:: 1. Description of specific treatment plan utilized for patients during their course of treatmen. 2. Summarize the time- course for resolution of acute symptoms and/or regressed behaviors. 3. Describe issues identified and worked on during hospitalization. 4. Describe medication utilized. 5. Describe medical problems identified and treated. 6. Reassessment of suicide risk Summary of Hospital Course: Patient was admitted to the geriatric psychiatry unit. Individual and group therapy were provided. Patient was stabilized on Effexor XR 225 mg PO Daily. He does not report any current suicidal ideation/plan/intent. He is currently psychiatrically stable for discharge. - Diagnosis (1) Major depressive disorder Current Visit: Yes Status: Chronic - Final Diagnosis (DSM 5) Condition upon Discharge: STABLE DSM 5: Major Depressive Disorder, VICKEY Disposition: HOME/ ROUTINE Follow-up Treatment Plan: Major Depressive Disorder, Generalized Anxiety Disorder; patient is currently psychiatrically stable for discharge -Hospitalist consult w/ Dr. Jeffrey -Individual and group therapy -Continue Effexor XR 225 mg PO Daily -Stop Xanax -Disposition planning- discharge to home w/ outpatient follow-up Prescriptions/Medication Reconciliation: Metoprolol Tartrate [Lopressor] 12.5 mg PO Q12 #60 tab Venlafaxine HCl [Venlafaxine HCl ER] 225 mg PO DAILY #30 tab.er.[id number] Zolpidem [Ambien] 5 mg PO HS PRN #30 tab PRN Reason: Insomnia - Smoking Cessation Smoking Cessation Medication prescribed: No Reason for not providing: Not indicated - Antipsychotic Medications Pt discharged on 2 or more routine antipsychotic medications: No
[2017-04-15 02:37] VITALS: O2SAT 100
== END 2017-04-14 14:20 | disposition home or self-care (01) | DRG 881 ==
LOC: H.ER 15:22 → H.ERHOLD 21:11 → H.STEP 22:26
PROVIDERS: ADMIT Psychiatry & Neurology Psychiatry; ATTEND Psychiatry & Neurology Psychiatry
DX: F32.9 Major depressive disorder, single episode, unspecified (principal); F41.1 Generalized anxiety disorder; I12.9 Hypertensive chronic kidney disease with stage 1 through stage 4 chronic kidney disease, or unspecified chronic kidney disease; E11.22 Type 2 diabetes mellitus with diabetic chronic kidney disease; N18.9 Chronic kidney disease, unspecified; E78.00 Pure hypercholesterolemia, unspecified; M19.90 Unspecified osteoarthritis, unspecified site; Z79.84 Long term (current) use of oral hypoglycemic drugs; Z79.82 Long term (current) use of aspirin; Z87.820 Personal history of traumatic brain injury; Z87.442 Personal history of urinary calculi